=== PATIENT | female | born 1965 | race Caucasian/White ===

== ENCOUNTER 2016-05-20 06:59 | Emergency (ER) | payer BC ==
[2016-05-20 07:10] VITALS: TEMP 97.7
--- NOTE | 2016-05-20 08:26 | EDPHY ---
HPI/HX/ROS/PE/MDM Narrative: CHIEF COMPLAINT: Fall, left arm pain HISTORY OF PRESENT ILLNESS: The patient is a 50 y/o female arriving with her complaining of left upper arm and scapula pain secondary to a fall last night. She says she was standing on ice last night and turned and slipped to the ground. She struck her left shoulder on a low retaining wall on the way down and also struck her head on the ground. She also complaining of finger pain. She denies loss of consciousness, headache, weakness, paresthesias, midline neck or back pain, abdominal pain, or chest pain following the injury. REVIEW OF SYSTEMS: Constitutional: No weakness Eyes: No visual changes or eye pain ENT: No dental trauma Neck: No pain or injury Respiratory: No shortness of breath Cardiac: No chest pain Gastrointestinal: No abdominal pain, no vomiting Back: see HPI Genitourinary: No hematuria Musculoskeletal: HPI Skin: HPI Neurological: No headache, no dizziness General Appearance: Alert, no distress Head: Multiple superficial abrasions left parietal scalp Eyes: No conjunctival erythema, PERRLA, EOMI ENT, Mouth: No hemotympanum, no oral trauma, no bony tenderness, abrasion to bridge of nose Neck: Non-tender, range of motion causes pain in her left shoulder Respiratory: No chest wall tenderness, lungs clear bilaterally Cardiovascular: Regular rate and rhythm Abdomen: Abdomen is soft and non tender Skin: Abrasion to left shoulder, abrasion left elbow, abrasions to left ring finger, ecchymosis left knee Back: No midline T/L/S tenderness Extremities: Pelvis is stable and nontender; left shoulder and scapula tenderness with palpation and movement, no crepitus or deformity; normal ROM of left elbow and hand; other extremities are nontender and have normal ROM Neurological: A&Ox3, normal motor function, normal sensory exam, cranial nerves intact Psychiatric: Mood and affect normal PRIOR MEDICAL HISTORY: Hypertension SOCIAL HISTORY: at bedside ED Course: 4mg IV Zofran and 4mg IV morphine administered for pain. Left shoulder x-ray ordered. Patient is NPO status. Study: Left shoulder x-ray Indication: pain, trauma Results: Left shoulder x-ray was obtained. The results of the study are Comminuted displaced scapular fracture extending through the body of the scapula to the inferior aspect of the glenoid. The study was read by the radiologist, Dr. Zhang. I viewed the images myself on the PACS system. 0900: I discussed imaging findings with the patient and answered her questions. Additional 4mg IV Morphine administered for pain. Plan for shoulder CT to further evaluate scapula fracture, which patient agrees to. Study: CT of the left shoulder/scapula Indication: Pain, trauma Results: CT scan of the scapula was obtained. The results of the study are Comminuted, displaced scapular fracture with extension into the glenoid, with rotation and displacement of the fragment involving the articular surface of the posterior/inferior glenoid. The study was read by the radiologist, Dr. Zhang. I viewed the images myself on the PACS system. 0950: Discussed imaging results with the patient and treatment plan. Two tabs PO oxycodone administered for pain. She will be discharged in a sling with scripts for Percocet and Zofran and referral to ortho for followup. CT scan reviewed with Dr. Roberson. He will follow up with the patient in the office. Return precautions given. She agrees with this plan. MDM: Differential diagnosis includes though it is not limited to open fracture, dislocation intracranial hemorrhage, pneumothorax, hemothorax, intra-abdominal hemorrhage. - Data Points Medications Given: Discontinued Medications Morphine Sulfate (Morphine) 4 mg IVP EDNOW ONE Stop: 05/20/16 07:39 Last Admin: 05/20/16 07:45 Dose: 4 mg Morphine Sulfate (Morphine) 4 mg IVP EDNOW ONE Stop: 05/20/16 09:00 Last Admin: 05/20/16 09:07 Dose: 4 mg Oxycodone/Acetaminophen (Percocet 5/325) 2 tab PO EDNOW ONE Stop: 05/20/16 10:01 Last Admin: 05/20/16 10:12 Dose: 2 tab General Time Seen by Provider: 05/20/16 07:48 Initial Vital Signs: Initial Vital Signs Temperature (C) 36.5 C 05/20/16 07:07 Heart Rate 95 05/20/16 07:07 Respiratory Rate 16 05/20/16 07:07 Blood Pressure 138/107 H 05/20/16 07:07 O2 Sat (%) 98 05/20/16 07:07 O2 Delivery Mode Room Air Allergies/Adverse Reactions: No Known Allergies Allergy (Unverified 05/20/16 07:05) Home Medications: Medication Instructions Recorded Irbesartan 05/20/16 Ondansetron Odt [Zofran Odt 4 mg 4 mg PO Q4 PRN #10 tab 05/20/16 (*)] oxyCODONE/APAP 5/325 [Percocet 1 - 2 tab PO Q4 PRN #30 tab 05/20/16 5/325 (*)] Departure - Departure Disposition: Home, Routine, Self-Care Clinical Impression: Fracture of scapula, glenoid cavity or neck Qualifiers: Encounter type: initial encounter Fracture type: closed Laterality: left Qualified Code(s): S42.142A - Displaced fracture of glenoid cavity of scapula, left shoulder, initial encounter for closed fracture Condition: Good Instructions: Scapular Fracture (ED) Additional Instructions: 1. Wear sling for comfort until follow up. You can try applying ice to sore areas as well. 2. Use Percocet as prescribed when needed for pain. Drink plenty of fluids and increase your fiber intake while using narcotics to avoid constipation. 3. Take Zofran if needed for nausea or vomiting, which are common side effects of narcotic use. 4. Follow up with Dr. Roberson, orthopedic surgeon, in the next 3-5 days. 5. Return to the ED for severe pain, numbness or weakness in your hand, or other worsening of condition. Referrals: RUBY PRESLEY MD [Other] - As per Instructions Eligio Roberson MD [Medical Doctor] - As per Instructions Prescriptions: Ondansetron Odt [Zofran Odt 4 mg (*)] 4 mg PO Q4 PRN #10 tab PRN Reason: Nausea oxyCODONE/APAP 5/325 [Percocet 5/325 (*)] 1 - 2 tab PO Q4 PRN #30 tab PRN Reason: pain Report Scribed for: Roopa Johnson Report Scribed by: Lesley Farai Date of Report: 05/20/16 Time of Report: 08:44 Physician Review and Approval Statement: Portions of this note were transcribed by a medical parasitologist. I personally performed a history, physical exam, medical decision making, and confirmed accuracy of information the transcribed note.
[2016-05-20] MEDS ORDERED: OXYCODONE/APAP 5/325 TAB PO ONE (10:00)
[2016-05-20 11:57] VITALS: BP 119/82; PULSE 90; RESP 18; O2SAT 93
== END 2016-05-20 11:57 | disposition home or self-care (01) ==
DX: S42.142A Displaced fracture of glenoid cavity of scapula, left shoulder, initial encounter for closed fracture (principal); I10 Essential (primary) hypertension; W00.0XXA Fall on same level due to ice and snow, initial encounter
CPT/HCPCS: 96374